=== PATIENT | female | born 1955 ===

== ENCOUNTER 2020-10-01 12:57 | Outpatient (CLI) | payer BC ==
[2020-10-01 13:09] LABS: BASOPHILS % (AUTO) 0.3 %; EOSINOPHILS # (AUTO) 0.1 10^3/uL (0.0-0.7); EOSINOPHILS % (AUTO) 1.7 %; HGB - HEMOGLOBIN 13.9 g/dL (12.0-16.0); LYMPHOCYTES # (AUTO) 1.5 10^3/uL (1.5-3.5); LYMPHOCYTES % (AUTO) 23.7 %; MEAN CORPUSCULAR HGB CONC 32.2 g/dL (32.0-36.0); MEAN CORPUSCULAR VOLUME 90.2 fL (81.0-99.0); MEAN PLATELET VOLUME 9.1 fL (7.9-10.8); MONOCYTES # (AUTO) 0.6 10^3/uL (0.0-1.0); NEUTROPHILS # (AUTO) 4.1 10^3/uL (1.5-6.6); NEUTROPHILS % (AUTO) 65.1 %; PLT - PLATELET COUNT 223 10^3/uL (130-450); RED BLOOD COUNT 4.79 10^6/uL (4.20-5.40); RED CELL DISTRIBUTION WIDTH 13.1 % (12.0-15.0); WHITE BLOOD COUNT 6.3 x10^3/uL (4.8-10.8)
[2020-10-01 13:21] LABS: ALBUMIN 4.3 g/dL (3.2-5.5); ALBUMIN/GLOBULIN RATIO 1.4 (1.0-2.2); BILIRUBIN,TOTAL 0.5 mg/dL (0.2-1.0); CALCIUM 9.2 mg/dL (8.5-10.3); CREATININE 0.7 mg/dL (0.4-1.0); TOTAL PROTEIN 7.4 g/dL (6.7-8.2)
[2020-10-01] MEDS ORDERED: IOVERSOL 320 50 ML VIAL ONE (13:28)
[2020-10-01] MEDS ORDERED: IOVERSOL 320 100 ML VIAL IVP ONE ×2 (13:28→14:49)
[2020-10-01] MEDS ORDERED: IOVERSOL 320 50 ML VIAL PO ONE (14:49)
--- NOTE | 2020-10-01 15:34 | CT Report ---
PROCEDURE: Abdomen/Pelvis W INDICATIONS: ABD PAIN, RLQ CONTRAST: IV CONTRAST: Optiray 320 ml: 100 PO CONTRAST: Optiray 320 ml50 TECHNIQUE: After the administration of intravenous contrast, 5 mm thick sections acquired from the diaphragms to the symphysis. 5 mm thick coronal and sagittal reformats were acquired. For radiation dose reducti on, the following was used: automated exposure control, adjustment of mA and/or kV according to favio ent size. COMPARISON: None. FINDINGS: Image quality: Excellent. ABDOMEN: Lung bases: Lung bases are clear. Heart size is normal. Solid organs: Liver and spleen are normal in size and enhancement. Mild diffuse hepatic steatosis. G allbladder is unremarkable. Biliary system is non dilated. Pancreas enhances normally. No adrenal nodules. Kidneys demonstrate normal size and enhancement, without hydronephrosis. Peritoneum and bowel: Bowel loops demonstrate normal wall thickness and caliber. No free fluid or a ir. Normal appendix. Nodes and vessels: No retroperitoneal or mesenteric adenopathy by size criteria. Aorta and inferior vena cava are normal in size. Miscellaneous: No ventral hernias. PELVIS: Genitourinary: Bladder wall thickness is normal. Miscellaneous: Small fat-containing right inguinal hernia without acute inflammation. No left-sided inguinal hernia or pelvic adenopathy. Bones: No suspicious bony lesions. No acute vertebral body compression fractures. IMPRESSION: 1. CT abdomen and pelvis without acute abnormalities. Specifically, no acute appendicitis. No evidenc e for diverticular disease. No evidence for bowel obstruction. 2. Small fat-containing right inguinal hernia without acute inflammatory changes. 3. Mild diffuse hepatic steatosis. Findings discussed with NAHEED Patel at 1530hrs. Reviewed by: Pérez Lee MD on 10/01/2020 3:32 PM PST Approved by: Pérez Lee MD on 10/01/2020 3:32 PM PST Station ID: [id number]
== END 2020-10-01 12:58 | disposition home or self-care (01) ==
LOC: LAB 12:57 → DI 12:58
PROVIDERS: ATTEND Physician Assistant Medical
DX: R10.31 Right lower quadrant pain (principal); K40.90 Unilateral inguinal hernia, without obstruction or gangrene, not specified as recurrent; K76.0 Fatty (change of) liver, not elsewhere classified
CPT/HCPCS: 36415; 74177; 80053; 83690; 85025; Q9967

== ENCOUNTER 2020-12-11 14:08 | Outpatient (CLI) | payer OTHER | END 2020-12-11 14:09 | disposition home or self-care (01) | LOC: COV 14:08 | PROVIDERS: ATTEND Family Medicine | DX: Z20.822 Contact with and (suspected) exposure to COVID-19 (principal) ==

== ENCOUNTER 2022-02-09 17:50 | Outpatient (CLI) | payer OTHER ==
--- NOTE | 2022-02-10 11:04 | XRAY Report ---
PROCEDURE: Finger(s) LT INDICATIONS: SUPERFICIAL INJURY OF L RING FINGER TECHNIQUE: AP hand, 2 views of the left fourth finger(s) acquired. COMPARISON: None FINDINGS: Bones: No definite fractures or dislocations. No suspicious bony lesions. Joint space loss and oss eous remodeling at the fifth DIP joint. Similar changes to a lesser extent in the other DIP joints an d first joint.. Soft tissues: No suspicious soft tissue calcifications. There is soft tissue swelling around the fo urth proximal phalanx. IMPRESSION: 1. Swelling surrounding the fourth proximal phalanx without definite underlying fracture. 2. 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 Reviewed by: Deana Elizondo MD on 02/10/2022 11:03 AM PDT Approved by: Deana Elizondo MD on 02/10/2022 11:03 AM PDT Station ID: [id number]
== END 2022-02-09 17:51 | disposition home or self-care (01) ==
LOC: DI.N 17:50
PROVIDERS: ATTEND Family Medicine
DX: S60.945A Unspecified superficial injury of left ring finger, initial encounter (principal); R60.0 Localized edema; M19.042 Primary osteoarthritis, left hand

== ENCOUNTER 2023-06-10 07:31 | Outpatient (CLI) | payer MEDICARE ==
--- NOTE | 2023-06-12 13:16 | MRI Report ---
PROCEDURE: FINGER(S) WO - LT INDICATIONS: INJ TO LEFT RING FINGER. TECHNIQUE: Noncontrast coronal and axial T1 and fast spin echo and T2 fast spin echo with fat saturation, and sa gittal T1 fast spin echo and STIR through the ring finger. COMPARISON: Left finger radiographs 02/09/2022 FINDINGS: Image quality: Excellent. Bones: Severe degenerative changes are seen within the 4th proximal interphalangeal joint with full- thickness joint space narrowing and marginal osteophyte formation as well as central subchondral cyst ic changes versus osseous erosions. There is surrounding osseous and soft tissue edema. Arthritic parvez nges are seen throughout the remaining visualized proximal and distal interphalangeal joints and the 1st metacarpophalangeal joint. Osseous structures otherwise demonstrate normal signal. Soft tissues: The visualized flexor and extensor tendons appear to be intact including the insertion of the 4th extensor tendon onto the middle and distal phalangeal bases. Visualized muscles demonstra te normal bulk and internal signal. No intramuscular masses identified. No ganglion cysts. 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 Findings may be secondary to severe primary osteoarthrosis versus erosive osteoarthritis versus prior trauma or a chronic inflammatory arthritis with superimposed secondary degenerative segura ges. 2.Additional prominent degenerative changes throughout the remaining visualized proximal and distal i nterphalangeal joints. Reviewed by: Delta Robledo MD on 06/12/2023 1:15 PM PDT Approved by: Delta Robledo MD on 06/12/2023 1:15 PM PDT Station ID: [id number]
== END 2023-06-10 07:32 | disposition home or self-care (01) ==
LOC: DI 07:31
PROVIDERS: ATTEND Physician Assistant Medical
DX: S60.945A Unspecified superficial injury of left ring finger, initial encounter (principal); M19.042 Primary osteoarthritis, left hand